=== PATIENT | male | born 1940 | race Hispanic/Latino ===

== ENCOUNTER 2018-07-10 08:07 | Emergency (ER) | payer MEDICARE, OTHER ==
[~2018-07-10] VITALS: Ht 165.1 cm; Wt 72.1 kg
[~2018-07-10 08:07] MED LIST: AMARYL1 MG PO; BENEFIBER1 EAC1; LEVAQUIN500 MG PO; LORTAB 7.5-5001 EACH; METOPROLOL SUCC50 MG PO; SYNTHROID25 MCG PO; Z.0.DEXILANT60 MG PO; Z.0.GLUCOPHAGE500 MG PO; Z.0.LIPITOR20 MG; Z.0.METOPROLOL SUCC5 PO; [UNRECOGNIZED DRUG - OTHER] PO
--- OUTSIDE RECORDS SUMMARY | 2018-07-10 08:11 | XMS REPORT ---
Author Author [facility] Address Unknown Phone Unavailable Care Team Providers Care Lease Attendant Name Role Phone Unavailable Unavailable Payers Payer Name Policy Type Policy Number Effective Date Expiration Date Problems This patient has no known problems. Allergies, Adverse Reactions, Alerts Allergy Name Allergy Type Status Severity Reaction(s) Onset Date Inactive Date Treating Clinician Comments rosie DA Active [place] 2018-04-12 00:00:00 Medications This patient has no known medications.
--- NOTE | 2018-07-10 08:18 | NUR ---
DR AWAD AT BEDSIDE FOR PATIENT EVAL
[2018-07-10] MEDS ORDERED: ACETAMINOPHEN 325 MG TAB PO ONE (08:30)
[2018-07-10] MEDS ORDERED: IBUPROFEN 400 MG TAB PO ONE (09:00)
[2018-07-10 09:02] LABS: STREPTOCOCCUS GRP A ANTIGEN NEGATIVE (NEGATIVE)
[2018-07-10 09:03] LABS: INFLUENZAE A&B ANTIGEN (RAPID) POSITIVE FLU A (NEGATIVE)
--- NOTE | 2018-07-10 09:18 | Diagnostic Imaging Report ---
EXAM: CHEST 2 VIEWS DATE: 07/10/2018 8:25 AM INDICATION: Fever, chills COMPARISON: A chest x-ray was performed on 04/10/2013. However, previous chest images are not available on PACS for comparison FINDINGS: Lines and tubes: None Heart size normal. No focal pulmonary opacity, pleural effusion or pneumothorax. Upper abdomen unremarkable. No acute bony abnormality. IMPRESSION: No evidence for acute disease. Signed by: Dr. Tu Cardoza M.D. on 07/10/2018 9:14 AM
[2018-07-10 09:36] VITALS: BP 138/75
== END 2018-07-10 09:39 | disposition home or self-care (01) ==
LOC: ER 08:07
DX: R50.9 Fever, unspecified (principal); R05 Cough; J11.1 Influenza due to unidentified influenza virus with other respiratory manifestations
CPT/HCPCS: 71046; 83518; 87070; 87400; 99283

== ENCOUNTER → 2019-04-11 | Outpatient (CLI) | payer OTHER, MEDICARE ==
[~2019-04-11] MED LIST changes: +GADOBENATE DIMEGLUMINE 1 ML IV ONE; +SODIUM CHLORIDE 0.9% 100 ML ONE
[2019-04-11 09:42] LABS: BLOOD UREA NITROGEN 20 mg/dL (7-26); BUN/CREATININE RATIO 25 (6-25); CREATININE, SERUM 0.79 mg/dL (0.72-1.25); EST GLOMERULAR FILTRATION RATE > 60 ML/MIN (60-)
--- NOTE | 2019-04-11 17:02 | Diagnostic Imaging Report ---
EXAM: MR Abdomen WITHOUT and WITH Contrast Magnetic Resonance Cholangiopancreatography (M.R.C.P.) INDICATION: CHRONIC PANCREATITIS COMPARISON: 11/23/2015 TECHNIQUE: Multiplanar, multisequence imaging of the abdomen was performed pre- and post-IV administration of gadolinium. Dynamic enhanced images of the abdomen were included. 3-D MRCP fat-saturated sequence was performed post contrast with MIP reformations. FINDINGS: LOWER THORAX: Unremarkable. HEPATOBILIARY: There is diffuse hepatic steatosis. No suspicious focal hepatic lesions. Is a 2.6 x 3.6 cm cyst in the left hepatic lobe No hepatic or extrahepatic biliary ductal dilation. GALLBLADDER: The gallbladder is absent SPLEEN: No splenomegaly. PANCREAS: No pancreatic masses identified. The pancreatic duct demonstrates mild diffuse dilatation of to 6 mm. This is unchanged prior examination. ADRENALS: No adrenal nodules KIDNEYS/URETERS: Kidneys enhance symmetrically. No hydronephrosis. No cystic or solid mass lesions. No stones. GI TRACT: No abnormal distention, wall thickening, or evidence of bowel obstruction. LYMPH NODES: No lymphadenopathy. VESSELS: Unremarkable. PERITONEUM / RETROPERITONEUM: No free air or fluid. BONES: The suspicious osseous lesions. SOFT TISSUES: IMPRESSION: Mild unchanged diffuse ductal dilatation of the main pancreatic duct up to 6 mm. Possibly the sequela of chronic pancreatitis. No pancreatic lesions identified. Signed by: Oscar Mac MD on 04/11/2019 4:59 PM
== END ==
LOC: MRI 09:08
PROVIDERS: ATTEND Internal Medicine Gastroenterology
DX: K86.1 Other chronic pancreatitis (principal)
CPT/HCPCS: 36415; 74183; 82565; 84520; A9577; J7050

== ENCOUNTER 2021-10-24 06:15 | Emergency (ER) | payer MEDICARE, BC ==
[~2021-10-24] VITALS: Ht 165.1 cm; Wt 72.1 kg
[~2021-10-24 06:15] MED LIST changes: -GADOBENATE DIMEGLUMINE 1 ML IV ONE; -SODIUM CHLORIDE 0.9% 100 ML ONE
[2021-10-24] MEDS ORDERED: KETOROLAC TROMETHAMINE 30 MG/ML VIAL IM STA (06:29)
[2021-10-24] MEDS ORDERED: IBUPROFEN400 MG PO (06:31)
== END 2021-10-24 08:03 | disposition home or self-care (01) ==
LOC: ER 06:30
DX: M79.18 Myalgia, other site (principal); M25.511 Pain in right shoulder; Z88.6 Allergy status to analgesic agent
CPT/HCPCS: 99282; J1885

== ENCOUNTER 2021-11-29 14:00 | Inpatient (IN) | payer BC, MEDICARE ==
[~2021-11-29] VITALS: Ht 167.6 cm; Wt 65.3 kg
[~2021-11-29 14:00] MED LIST changes: +IBUPROFEN400 MG PO
[2021-11-29] MEDS ORDERED: SODIUM CHLORIDE 0.9% 1000ML 1,000 ML IV STA (15:46)
[2021-11-29] MEDS ORDERED: ONDANSETRON HCL INJ 2MG/ML 2ML 2 MG/ML VIAL IV STA (15:46)
[2021-11-29] MEDS ORDERED: Morphine 4mg INJECTION 4 MG/ML INJ IV STA (15:46)
[2021-11-29] MEDS ORDERED: IOPAMIDOL 370 MG/ML 100 ML INFUS..BTL INJ ONE (16:08)
[2021-11-29] MEDS ORDERED: DIATRIZOATE MEGL/DIATRIZOA SOD 30 ML BTL PO ONE (16:10)
[2021-11-29 16:40] LABS: BASOPHILS # (AUTO) 0.1 (0.0-0.1); BASOPHILS % 0.6 % (0.0-1.0); EOSINOPHILS # (AUTO) 0.4 (0.0-0.4); EOSINOPHILS % 2.6 % (0.0-6.0); HEMATOCRIT 35.1 % (38.2-49.6); HEMOGLOBIN 11.6 g/dL (14.0-18.0); LYMPHOCYTES # (AUTO) 2.4 (1.0-3.2); LYMPHOCYTES % 17.4 % (18.0-39.1); MEAN CORPUSCULAR HEMOGLOBIN 28.8 pg (28-32); MEAN CORPUSCULAR VOLUME 87.1 fL (81-99); MONOCYTES # (AUTO) 0.9 (0.2-0.8); MONOCYTES % 6.7 % (4.4-11.3); NEUTROPHILS # (AUTO) 10.1 (2.1-6.9); NEUTROPHILS % 72.2 % (38.7-80.0); PLATELET COUNT 386 x10e3/uL (140-360); RED BLOOD COUNT 4.03 x10e6/uL (4.3-5.7); RED CELL DISTRIBUTION WIDTH 14.5 % (11.7-14.4)
[2021-11-29 17:02] LABS: ALANINE AMINOTRANSFERASE 133 IU/L (0-55); ALBUMIN 2.3 g/dL (3.5-5.0); ALBUMIN/GLOBULIN RATIO 0.4 (0.8-2.0); ALKALINE PHOSPHATASE 1117 IU/L (40-150); ANION GAP 15.4 mmol/L (8-16); BLOOD UREA NITROGEN 21 mg/dL (7-26); BUN/CREATININE RATIO 21 (6-25); CALCIUM 9.5 mg/dL (8.4-10.2); CARBON DIOXIDE 25 mmol/L (22-29); CHLORIDE 98 mmol/L (98-107); CREATINE KINASE 29 IU/L (30-200); CREATININE, SERUM 0.98 mg/dL (0.72-1.25); GLUCOSE 134 mg/dL (74-118); LIPASE 50 U/L (8-78); MAGNESIUM 1.9 MG/DL (1.3-2.1); POTASSIUM 4.4 mmol/L (3.5-5.1); SODIUM 134 mmol/L (136-145)
[2021-11-29 18:34] LABS: CLARITY,URINE SL CLOUDY (CLEAR); COLOR,URINE YELLOW (YELLOW); KETONES,URINE NEGATIVE (NEGATIVE); LEUKOCYTE ESTERASE ,URINE NEGATIVE (NEGATIVE); NITRITE,URINE NEGATIVE (NEGATIVE); PROTEIN,URINE DIPSTICK NEGATIVE (NEGATIVE); URINE UROBILINOGEN 1 mg/dL (0.2 - 1)
[2021-11-29] MEDS: Morphine 4mg INJECTION 4 MG/ML INJ IV PRN (20:44)
[2021-11-29] MEDS: ONDANSETRON HCL INJ 2MG/ML 2ML 2 MG/ML VIAL IV PRN (20:44)
[2021-11-29 23:00] LABS: ALBUMIN 2.1 g/dL (3.5-5.0); BILIRUBIN,DIRECT 1.2 mg/dL (0.0-0.5)
[2021-11-30] VITALS (9 sets, daily range): BP systolic 118–168; BP diastolic 75–87
[2021-11-30] MEDS: ONDANSETRON HCL INJ 2MG/ML 2ML 2 MG/ML VIAL IV PRN (01:23)
[2021-11-30] MEDS: Morphine 4mg INJECTION 4 MG/ML INJ IV PRN ×2 (01:23→23:21)
[2021-11-30] MEDS ORDERED: ACETAMINOPHEN 325 MG TAB PO ONE (01:30)
[2021-11-30] MEDS ORDERED: ACETAMINOPHEN 325 MG TAB ONE (01:42)
[2021-11-30] MEDS ORDERED: SODIUM CHLORIDE 0.9% 250ML 250 ML ONE (05:14)
[2021-11-30] MEDS ORDERED: GADOBENATE DIMEGLUMINE 1 ML IV ONE (14:34)
[2021-11-30 15:56] LABS: INR 0.98; PROTHROMBIN TIME 13.9 seconds (11.9-14.5)
[2021-11-30] MEDS ORDERED: DEXTROSE 50% SYRINGE 50 ML IV PRN (21:30)
[2021-11-30] MEDS: INSULIN REGULAR, HUMAN 100 UNIT/1 ML SQ SCH (21:56)
[2021-12-01] VITALS (9 sets, daily range): BP systolic 121–156; BP diastolic 61–89
[2021-12-01 04:52] LABS: BASOPHILS # (AUTO) 0.1 (0.0-0.1); BASOPHILS % 0.4 % (0.0-1.0); EOSINOPHILS # (AUTO) 0.4 (0.0-0.4); EOSINOPHILS % 3.3 % (0.0-6.0); HEMOGLOBIN 10.7 g/dL (14.0-18.0); LYMPHOCYTES # (AUTO) 1.7 (1.0-3.2); LYMPHOCYTES % 14.4 % (18.0-39.1); MEAN CORPUSCULAR HEMOGLOBIN 28.8 pg (28-32); MEAN CORPUSCULAR HGB CONC 34.5 g/dL (31-35); MEAN CORPUSCULAR VOLUME 83.6 fL (81-99); MONOCYTES # (AUTO) 0.9 (0.2-0.8); MONOCYTES % 7.8 % (4.4-11.3); NEUTROPHILS # (AUTO) 8.8 (2.1-6.9); NEUTROPHILS % 73.7 % (38.7-80.0); PLATELET COUNT 353 x10e3/uL (140-360); RED BLOOD COUNT 3.71 x10e6/uL (4.3-5.7); RED CELL DISTRIBUTION WIDTH 14.2 % (11.7-14.4)
[2021-12-01 05:10] LABS: ANION GAP 13.1 mmol/L (8-16); CREATININE, SERUM 0.81 mg/dL (0.72-1.25); POTASSIUM 4.1 mmol/L (3.5-5.1)
[2021-12-01] MEDS ORDERED: LIDOCAINE HCL 1% LOCAL INJ 20 ML VIAL ONE (09:51)
[2021-12-01] MEDS ORDERED: FENTANYL CITRATE/PF 100MCG/2 ML INJ ONE (09:58)
[2021-12-01] MEDS ORDERED: MIDAZOLAM HCL 2 MG/2 ML VIAL ONE (09:58)
[2021-12-01] MEDS ORDERED: SODIUM CHLORIDE 0.9% 250ML 250 ML ONE (09:59)
[2021-12-01] MEDS: INSULIN REGULAR, HUMAN 100 UNIT/1 ML SQ SCH ×3 (12:32→21:18)
[2021-12-01] MEDS: ONDANSETRON HCL INJ 2MG/ML 2ML 2 MG/ML VIAL IV PRN (15:39)
[2021-12-01] MEDS: Morphine 4mg INJECTION 4 MG/ML INJ IV PRN ×2 (15:40→20:11)
[2021-12-02 05:25] LABS: BASOPHILS # (AUTO) 0.1 (0.0-0.1); BASOPHILS % 0.8 % (0.0-1.0); EOSINOPHILS # (AUTO) 0.7 (0.0-0.4); HEMATOCRIT 29.8 % (38.2-49.6); HEMOGLOBIN 9.9 g/dL (14.0-18.0); LYMPHOCYTES % 17.1 % (18.0-39.1); MEAN CORPUSCULAR HEMOGLOBIN 28.3 pg (28-32); MEAN CORPUSCULAR HGB CONC 33.2 g/dL (31-35); MEAN CORPUSCULAR VOLUME 85.1 fL (81-99); MONOCYTES # (AUTO) 0.9 (0.2-0.8); NEUTROPHILS # (AUTO) 7.7 (2.1-6.9); NEUTROPHILS % 67.5 % (38.7-80.0); PLATELET COUNT 358 x10e3/uL (140-360); RED CELL DISTRIBUTION WIDTH 14.7 % (11.7-14.4)
[2021-12-02 05:50] LABS: ALBUMIN 1.8 g/dL (3.5-5.0); ALBUMIN/GLOBULIN RATIO 0.4 (0.8-2.0); CALCIUM 8.3 mg/dL (8.4-10.2); CREATININE, SERUM 0.84 mg/dL (0.72-1.25)
[2021-12-02] MEDS ORDERED: ACETAMINOPHEN 325 MG TAB PO PRN (06:30)
[2021-12-02 07:46] VITALS: BP 151/74
[2021-12-02] MEDS ORDERED: GADOBENATE DIMEGLUMINE 1 ML IV ONE (08:42)
[2021-12-02] MEDS: INSULIN REGULAR, HUMAN 100 UNIT/1 ML SQ SCH ×4 (09:23→22:30)
[2021-12-02 09:28] VITALS: BP 151/74
[2021-12-02 10:59] VITALS: BP 138/77
[2021-12-02 15:39] VITALS: BP 143/75
[2021-12-02 20:00] VITALS: BP 161/81
[2021-12-02 20:41] VITALS: BP 161/81
[2021-12-02] MEDS: ONDANSETRON HCL INJ 2MG/ML 2ML 2 MG/ML VIAL IV PRN (23:50)
[2021-12-03] VITALS: BP 146/72
[2021-12-03 00:09] LABS: % IRON SATURATION 11 % (15-50); IRON 21 ug/dL (65-175); TOTAL IRON BINDING CAPACITY 183 ug/dL (261-478); TRANSFERRIN 131 mg/dL (174-364)
[2021-12-03 04:00] VITALS: BP 155/78
[2021-12-03 07:44] VITALS: BP 144/74
[2021-12-03] MEDS: INSULIN REGULAR, HUMAN 100 UNIT/1 ML SQ SCH ×2 (08:33→11:30)
[2021-12-03 09:00] VITALS: BP 144/74
[2021-12-03] MEDS: IRON SUCROSE 100 MG in SODIUM CHLORIDE 0.9% 100 ML IV SCH ×2 (09:00→14:01)
[2021-12-03] MEDS ORDERED: AMBIEN5 MG PO (11:36)
[2021-12-03] MEDS ORDERED: DEXILANT60 MG PO (11:36)
[2021-12-03] MEDS: Morphine 4mg INJECTION 4 MG/ML INJ IV PRN (12:02)
[2021-12-03] MEDS: ONDANSETRON HCL INJ 2MG/ML 2ML 2 MG/ML VIAL IV PRN (12:02)
[2021-12-03 12:39] VITALS: BP 159/81
[2021-12-03] MEDS ORDERED: HYDROCODON-ACE1 EAC9 PO (12:44)
[2021-12-03 18:48] VITALS: BP 132/59
[2021-12-03] MEDS ORDERED: INSULIN GLARGINE 100 UNITS/ML VIAL SQ SCH (21:00)
[2021-12-03] MEDS ORDERED: PANTOPRAZOLE SOD 40 MG TABEC PO SCH (21:00)
[2021-12-04] MEDS ORDERED: SENNOSIDES 8.6 MG TAB PO SCH (09:00)
[2021-12-04] MEDS ORDERED: DOCUSATE SODIUM 100 MG CAP PO SCH (09:00)
== END 2021-12-03 14:21 | disposition home or self-care (01) | DRG 844 ==
LOC: ER 16:08 → ERHOLD 19:16 → MED/SURG 11-30 02:09 → OBSVTOIN 11-30 11:20 → MED/SURG3 12-03 10:15
PROC: 0WBH3ZX Excision of Retroperitoneum, Percutaneous Approach, Diagnostic (ICD-10-PCS; principal; 2021-12-01)
DX: C48.0 Malignant neoplasm of retroperitoneum (principal); C79.51 Secondary malignant neoplasm of bone; K86.1 Other chronic pancreatitis; N13.30 Unspecified hydronephrosis; M79.89 Other specified soft tissue disorders; I10 Essential (primary) hypertension; E11.9 Type 2 diabetes mellitus without complications; K21.9 Gastro-esophageal reflux disease without esophagitis; E78.5 Hyperlipidemia, unspecified; Z09 Encounter for follow-up examination after completed treatment for conditions other than malignant neoplasm; Z91.041 Radiographic dye allergy status; E03.9 Hypothyroidism, unspecified; N40.0 Benign prostatic hyperplasia without lower urinary tract symptoms; E11.65 Type 2 diabetes mellitus with hyperglycemia; Z79.4 Long term (current) use of insulin; E78.2 Mixed hyperlipidemia; D64.9 Anemia, unspecified; Z90.49 Acquired absence of other specified parts of digestive tract; K76.0 Fatty (change of) liver, not elsewhere classified
CPT/HCPCS: 0223U; 36415; 70450; 74176; 74183; 74470; 77012; 80048; 80053; 80076; 81001; 82105; 82550; 82553; 82607; 82746; 82948; 83540; 83690; 83735; 84080; 84466; 84484; 85025; 85045; 85610; 85730; 87086; 88304; 88305; 88342; 93005; 99152; 99153; 99251; 99284; G0378; J1756; J1817; J2001; J2185; J2250; J2270; J2405; J3010; J7030; J7050; Q9963; Q9967

== ENCOUNTER 2021-12-28 10:45 | Inpatient (IN) | payer BC, MEDICARE ==
[~2021-12-28] VITALS: Ht 167.6 cm; Wt 65.3 kg
[~2021-12-28 10:45] MED LIST changes: +AMBIEN5 MG PO; +DEXILANT60 MG PO; +HYDROCODON-ACE1 EAC9 PO
[2021-12-28 14:00] VITALS: BP 146/78
[2021-12-28 14:02] VITALS: BP 146/78
[2021-12-28] MEDS ORDERED: SYNJARDY 12.5-1 EACH (14:13)
[2021-12-28 15:53] LABS: BASOPHILS # (AUTO) 0.1 (0.0-0.1); BASOPHILS % 0.4 % (0.0-1.0); EOSINOPHILS # (AUTO) 0.2 (0.0-0.4); EOSINOPHILS % 1.1 % (0.0-6.0); HEMATOCRIT 28.1 % (38.2-49.6); HEMOGLOBIN 9.3 g/dL (14.0-18.0); MEAN CORPUSCULAR HEMOGLOBIN 28.4 pg (28-32); MEAN CORPUSCULAR HGB CONC 33.1 g/dL (31-35); MEAN CORPUSCULAR VOLUME 85.9 fL (81-99); MONOCYTES # (AUTO) 0.6 (0.2-0.8); MONOCYTES % 4.6 % (4.4-11.3); NEUTROPHILS % 85.8 % (38.7-80.0); PLATELET COUNT 276 x10e3/uL (140-360); RED BLOOD COUNT 3.27 x10e6/uL (4.3-5.7); RED CELL DISTRIBUTION WIDTH 21.2 % (11.7-14.4)
[2021-12-28 15:58] VITALS: BP 142/81
[2021-12-28 16:15] LABS: ALBUMIN 1.4 g/dL (3.5-5.0); ALBUMIN/GLOBULIN RATIO 0.3 (0.8-2.0); ANION GAP 17.4 mmol/L (8-16); CREATININE, SERUM 0.73 mg/dL (0.72-1.25); POTASSIUM 4.4 mmol/L (3.5-5.1)
[2021-12-28 20:00] VITALS: BP 150/85
[2021-12-28] MEDS: METFORMIN HCL 500 MG TAB PO SCH (21:00)
[2021-12-28] MEDS ORDERED: ONDANSETRON HCL INJ 2MG/ML 2ML 2 MG/ML VIAL IV PRN (21:15)
[2021-12-28 22:00] VITALS: BP 150/85
[2021-12-28] MEDS: INSULIN LISPRO 100 UNIT/1 ML 3ML VIAL SQ SCH (22:00)
[2021-12-29] VITALS: BP 138/74
[2021-12-29] MEDS: LEVOTHYROXINE SODIUM 125 MCG TAB PO SCH (05:41)
[2021-12-29 05:54] LABS: BASOPHILS # (AUTO) 0.1 (0.0-0.1); BASOPHILS % 0.3 % (0.0-1.0); EOSINOPHILS # (AUTO) 0.3 (0.0-0.4); EOSINOPHILS % 1.9 % (0.0-6.0); HEMOGLOBIN 9.5 g/dL (14.0-18.0); LYMPHOCYTES # (AUTO) 1.7 (1.0-3.2); LYMPHOCYTES % 11.5 % (18.0-39.1); MEAN CORPUSCULAR HEMOGLOBIN 28.8 pg (28-32); MEAN CORPUSCULAR HGB CONC 32.8 g/dL (31-35); MEAN CORPUSCULAR VOLUME 87.9 fL (81-99); MONOCYTES # (AUTO) 0.7 (0.2-0.8); MONOCYTES % 4.7 % (4.4-11.3); NEUTROPHILS # (AUTO) 11.7 (2.1-6.9); NEUTROPHILS % 80.7 % (38.7-80.0); PLATELET COUNT 291 x10e3/uL (140-360); RED CELL DISTRIBUTION WIDTH 21.5 % (11.7-14.4)
[2021-12-29 06:08] LABS: INR 1.09; PROTHROMBIN TIME 15.1 seconds (11.9-14.5)
[2021-12-29 06:09] LABS: PARTIAL THROMBOPLASTIN TIME 42.9 seconds (23.8-35.5)
[2021-12-29 06:33] LABS: ALBUMIN 1.4 g/dL (3.5-5.0); ALBUMIN/GLOBULIN RATIO 0.3 (0.8-2.0); ANION GAP 15.1 mmol/L (8-16); CALCIUM 8.9 mg/dL (8.4-10.2); CREATININE, SERUM 0.66 mg/dL (0.72-1.25); MAGNESIUM 2.1 MG/DL (1.3-2.1); POTASSIUM 4.1 mmol/L (3.5-5.1)
[2021-12-29] MEDS: GLIMEPIRIDE 2 MG TAB PO SCH (07:30)
[2021-12-29] MEDS: INSULIN LISPRO 100 UNIT/1 ML 3ML VIAL SQ SCH ×4 (07:30→23:55)
[2021-12-29] MEDS: PANTOPRAZOLE SOD 40 MG TABEC PO SCH (07:30)
[2021-12-29 08:04] VITALS: BP 138/74
[2021-12-29] MEDS: METFORMIN HCL 500 MG TAB PO SCH ×2 (09:00→20:22)
[2021-12-29] MEDS: METOPROLOL SUCCINATE 50 MG TAB XL PO SCH (09:01)
[2021-12-29 09:02] VITALS: BP 126/67
[2021-12-29 12:31] VITALS: BP 125/66
[2021-12-29] MEDS: HYDROCODONE/APAP 10MG-325MG TAB PO PRN (16:00)
[2021-12-29 16:13] VITALS: BP 135/66
[2021-12-29 20:00] VITALS: BP 135/68
[2021-12-29] MEDS: ACETAMINOPHEN 325 MG TAB PO PRN (22:26)
[2021-12-30] VITALS (8 sets, daily range): BP systolic 122–143; BP diastolic 67–80
[2021-12-30] MEDS: LEVOTHYROXINE SODIUM 125 MCG TAB PO SCH (06:11)
[2021-12-30 06:57] LABS: ALBUMIN 1.3 g/dL (3.5-5.0); ALBUMIN/GLOBULIN RATIO 0.2 (0.8-2.0); ANION GAP 15.2 mmol/L (8-16); BILIRUBIN,DIRECT 5.2 mg/dL (0.0-0.5); CALCIUM 8.6 mg/dL (8.4-10.2); CREATININE, SERUM 0.67 mg/dL (0.72-1.25); POTASSIUM 4.2 mmol/L (3.5-5.1)
[2021-12-30] MEDS: INSULIN LISPRO 100 UNIT/1 ML 3ML VIAL SQ SCH ×5 (08:17→20:44)
[2021-12-30] MEDS: HYDROCODONE/APAP 10MG-325MG TAB PO PRN ×3 (09:11→22:51)
[2021-12-30] MEDS: METFORMIN HCL 500 MG TAB PO SCH ×2 (09:11→20:37)
[2021-12-30] MEDS: GLIMEPIRIDE 2 MG TAB PO SCH (09:12)
[2021-12-30] MEDS: METOPROLOL SUCCINATE 50 MG TAB XL PO SCH (09:13)
[2021-12-30] MEDS: PANTOPRAZOLE SOD 40 MG TABEC PO SCH (09:13)
[2021-12-30] MEDS ORDERED: ONDANSETRON HCL 4 MG ORAL DISINTEGRATING TAB PO PRN (11:45)
[2021-12-30] MEDS ORDERED: [UNRECOGNIZED DRUG - OTHER] PO SCH (14:30)
[2021-12-30] MEDS ORDERED: AMYLASE PO SCH (14:30)
[2021-12-30] MEDS ORDERED: PROTEASE PO SCH (14:30)
[2021-12-30] MEDS ORDERED: LIPASE PO SCH (14:30)
[2021-12-30] MEDS ORDERED: GADOBENATE DIMEGLUMINE 1 ML IV ONE (14:36)
[2021-12-30] MEDS: AMYLAS/CELLU/LIPAS/PROTEA/BILE 12,000 UNIT CAP PO SCH (17:36)
[2021-12-30] MEDS ORDERED: SODIUM CHLORIDE 0.9% 250ML 250 ML ONE (17:52)
[2021-12-30] MEDS: SODIUM FERRIC GLUCONATE COMPLX 125 MG in SODIUM CHLORIDE 0.9% 100 ML IV SCH (20:37)
[2021-12-30] MEDS: ZOLPIDEM TARTRATE 5 MG TAB PO PRN (22:51)
[2021-12-31] VITALS (7 sets, daily range): BP systolic 116–138; BP diastolic 61–77
[2021-12-31] MEDS: LEVOTHYROXINE SODIUM 125 MCG TAB PO SCH (05:36)
[2021-12-31 07:20] LABS: BASOPHILS # (AUTO) 0.1 (0.0-0.1); BASOPHILS % 0.5 % (0.0-1.0); EOSINOPHILS # (AUTO) 0.5 (0.0-0.4); HEMATOCRIT 30.6 % (38.2-49.6); HEMOGLOBIN 9.8 g/dL (14.0-18.0); LYMPHOCYTES # (AUTO) 2.2 (1.0-3.2); LYMPHOCYTES % 14.4 % (18.0-39.1); MEAN CORPUSCULAR HEMOGLOBIN 28.7 pg (28-32); MEAN CORPUSCULAR VOLUME 89.5 fL (81-99); MONOCYTES # (AUTO) 0.7 (0.2-0.8); MONOCYTES % 4.9 % (4.4-11.3); NEUTROPHILS # (AUTO) 11.6 (2.1-6.9); PLATELET COUNT 272 x10e3/uL (140-360); RED BLOOD COUNT 3.42 x10e6/uL (4.3-5.7); RED CELL DISTRIBUTION WIDTH 21.3 % (11.7-14.4)
[2021-12-31] MEDS: INSULIN LISPRO 100 UNIT/1 ML 3ML VIAL SQ SCH ×4 (07:30→21:30)
[2021-12-31 07:52] LABS: ANION GAP 15.4 mmol/L (8-16); CALCIUM 8.9 mg/dL (8.4-10.2); CREATININE, SERUM 0.67 mg/dL (0.72-1.25); POTASSIUM 4.4 mmol/L (3.5-5.1)
[2021-12-31] MEDS: HYDROCODONE/APAP 10MG-325MG TAB PO PRN ×3 (08:31→21:24)
[2021-12-31] MEDS: PANTOPRAZOLE SOD 40 MG TABEC PO SCH (10:24)
[2021-12-31] MEDS: GLIMEPIRIDE 2 MG TAB PO SCH (10:24)
[2021-12-31] MEDS: METFORMIN HCL 500 MG TAB PO SCH ×2 (10:25→21:24)
[2021-12-31] MEDS: SODIUM FERRIC GLUCONATE COMPLX 125 MG in SODIUM CHLORIDE 0.9% 100 ML IV SCH (10:25)
[2021-12-31] MEDS: AMYLAS/CELLU/LIPAS/PROTEA/BILE 12,000 UNIT CAP PO SCH ×3 (10:25→17:04)
[2021-12-31] MEDS: METOPROLOL SUCCINATE 50 MG TAB XL PO SCH (10:26)
[2021-12-31] MEDS: ZOLPIDEM TARTRATE 5 MG TAB PO PRN (21:24)
[2022-01-01] VITALS (9 sets, daily range): BP systolic 122–152; BP diastolic 61–72
[2022-01-01] MEDS: HYDROCODONE/APAP 10MG-325MG TAB PO PRN (06:20)
[2022-01-01] MEDS: LEVOTHYROXINE SODIUM 125 MCG TAB PO SCH (06:20)
[2022-01-01] MEDS: PANTOPRAZOLE SOD 40 MG TABEC PO SCH (07:30)
[2022-01-01] MEDS: INSULIN LISPRO 100 UNIT/1 ML 3ML VIAL SQ SCH ×4 (07:30→20:31)
[2022-01-01] MEDS: AMYLAS/CELLU/LIPAS/PROTEA/BILE 12,000 UNIT CAP PO SCH ×3 (07:30→17:02)
[2022-01-01] MEDS: GLIMEPIRIDE 2 MG TAB PO SCH (07:30)
[2022-01-01] MEDS: METOPROLOL SUCCINATE 50 MG TAB XL PO SCH (08:55)
[2022-01-01] MEDS: METFORMIN HCL 500 MG TAB PO SCH (08:55)
[2022-01-01] MEDS: SODIUM FERRIC GLUCONATE COMPLX 125 MG in SODIUM CHLORIDE 0.9% 100 ML IV SCH (08:56)
[2022-01-01 13:59] LABS: BASOPHILS # (AUTO) 0.1 (0.0-0.1); BASOPHILS % 0.5 % (0.0-1.0); EOSINOPHILS # (AUTO) 0.3 (0.0-0.4); EOSINOPHILS % 1.6 % (0.0-6.0); HEMATOCRIT 29.5 % (38.2-49.6); HEMOGLOBIN 9.4 g/dL (14.0-18.0); LYMPHOCYTES # (AUTO) 2.2 (1.0-3.2); LYMPHOCYTES % 12.9 % (18.0-39.1); MEAN CORPUSCULAR HEMOGLOBIN 28.7 pg (28-32); MEAN CORPUSCULAR HGB CONC 31.9 g/dL (31-35); MEAN CORPUSCULAR VOLUME 89.9 fL (81-99); MONOCYTES # (AUTO) 0.8 (0.2-0.8); MONOCYTES % 4.8 % (4.4-11.3); NEUTROPHILS # (AUTO) 13.4 (2.1-6.9); PLATELET COUNT 284 x10e3/uL (140-360); RED BLOOD COUNT 3.28 x10e6/uL (4.3-5.7); RED CELL DISTRIBUTION WIDTH 21.5 % (11.7-14.4)
[2022-01-01 14:24] LABS: ALBUMIN 1.2 g/dL (3.5-5.0); ALBUMIN/GLOBULIN RATIO 0.2 (0.8-2.0); ANION GAP 17.5 mmol/L (8-16); CALCIUM 9.1 mg/dL (8.4-10.2); CREATININE, SERUM 0.79 mg/dL (0.72-1.25); POTASSIUM 4.5 mmol/L (3.5-5.1)
[2022-01-01] MEDS: DEXTROSE 50% SYRINGE 50 ML IV PRN (20:29)
[2022-01-01] MEDS: DEXTROSE 5%/0.45% SOD CHL 1,000 ML IV SCH (21:14)
[2022-01-01] MEDS: ZOLPIDEM TARTRATE 5 MG TAB PO PRN (22:54)
[2022-01-02] VITALS (7 sets, daily range): BP systolic 113–139; BP diastolic 60–75
[2022-01-02] MEDS: DEXTROSE 50% SYRINGE 50 ML IV PRN (03:31)
[2022-01-02] MEDS: HYDROCODONE/APAP 10MG-325MG TAB PO PRN ×2 (05:01→23:05)
[2022-01-02] MEDS: LEVOTHYROXINE SODIUM 125 MCG TAB PO SCH (05:01)
[2022-01-02 06:26] LABS: BASOPHILS # (AUTO) 0.1 (0.0-0.1); BASOPHILS % 0.4 % (0.0-1.0); EOSINOPHILS # (AUTO) 0.3 (0.0-0.4); EOSINOPHILS % 2.4 % (0.0-6.0); HEMATOCRIT 28.4 % (38.2-49.6); HEMOGLOBIN 9.1 g/dL (14.0-18.0); LYMPHOCYTES # (AUTO) 1.4 (1.0-3.2); LYMPHOCYTES % 10.4 % (18.0-39.1); MEAN CORPUSCULAR HEMOGLOBIN 29.1 pg (28-32); MEAN CORPUSCULAR VOLUME 90.7 fL (81-99); MONOCYTES # (AUTO) 0.7 (0.2-0.8); MONOCYTES % 5.2 % (4.4-11.3); NEUTROPHILS # (AUTO) 10.9 (2.1-6.9); NEUTROPHILS % 80.4 % (38.7-80.0); PLATELET COUNT 262 x10e3/uL (140-360); RED BLOOD COUNT 3.13 x10e6/uL (4.3-5.7); RED CELL DISTRIBUTION WIDTH 22.1 % (11.7-14.4)
[2022-01-02 06:51] LABS: ALBUMIN 1.1 g/dL (3.5-5.0); ALBUMIN/GLOBULIN RATIO 0.2 (0.8-2.0); ANION GAP 16.2 mmol/L (8-16); CALCIUM 8.8 mg/dL (8.4-10.2); CREATININE, SERUM 0.76 mg/dL (0.72-1.25); POTASSIUM 4.2 mmol/L (3.5-5.1)
[2022-01-02] MEDS: INSULIN LISPRO 100 UNIT/1 ML 3ML VIAL SQ SCH ×4 (07:30→22:00)
[2022-01-02] MEDS: PANTOPRAZOLE SOD 40 MG TABEC PO SCH (09:31)
[2022-01-02] MEDS: AMYLAS/CELLU/LIPAS/PROTEA/BILE 12,000 UNIT CAP PO SCH ×3 (09:31→15:48)
[2022-01-02] MEDS: SODIUM FERRIC GLUCONATE COMPLX 125 MG in SODIUM CHLORIDE 0.9% 100 ML IV SCH (09:31)
[2022-01-02] MEDS: METOPROLOL SUCCINATE 50 MG TAB XL PO SCH (09:32)
[2022-01-02] MEDS: ACETAMINOPHEN 325 MG TAB PO PRN (11:31)
[2022-01-02] MEDS ORDERED: DOCUSATE SODIUM 100 MG CAP PO PRN (13:30)
[2022-01-02] MEDS: DEXTROSE 5%/0.45% SOD CHL 1,000 ML IV SCH (17:09)
[2022-01-02] MEDS: ZOLPIDEM TARTRATE 5 MG TAB PO PRN (22:35)
[2022-01-03] VITALS (8 sets, daily range): BP systolic 127–140; BP diastolic 66–74
[2022-01-03] MEDS: HYDROCODONE/APAP 10MG-325MG TAB PO PRN ×2 (04:00→17:02)
[2022-01-03] MEDS: LEVOTHYROXINE SODIUM 125 MCG TAB PO SCH (06:00)
[2022-01-03] MEDS: SODIUM FERRIC GLUCONATE COMPLX 125 MG in SODIUM CHLORIDE 0.9% 100 ML IV SCH (09:38)
[2022-01-03] MEDS: AMYLAS/CELLU/LIPAS/PROTEA/BILE 12,000 UNIT CAP PO SCH ×3 (09:38→17:00)
[2022-01-03] MEDS: PANTOPRAZOLE SOD 40 MG TABEC PO SCH (09:39)
[2022-01-03] MEDS: METOPROLOL SUCCINATE 50 MG TAB XL PO SCH (09:39)
[2022-01-03] MEDS: INSULIN LISPRO 100 UNIT/1 ML 3ML VIAL SQ SCH ×4 (09:51→20:45)
[2022-01-03] MEDS: DEXTROSE 5%/0.45% SOD CHL 1,000 ML IV SCH (13:15)
[2022-01-03 13:52] LABS: INR 1.14; PROTHROMBIN TIME 15.6 seconds (11.9-14.5)
[2022-01-03 13:53] LABS: PARTIAL THROMBOPLASTIN TIME 53.1 seconds (23.8-35.5)
[2022-01-03] MEDS: ACETAMINOPHEN 325 MG TAB PO PRN (21:30)
[2022-01-04] VITALS (8 sets, daily range): BP systolic 110–135; BP diastolic 65–80
[2022-01-04] MEDS: ZOLPIDEM TARTRATE 5 MG TAB PO PRN (01:34)
[2022-01-04] MEDS: HYDROCODONE/APAP 10MG-325MG TAB PO PRN (01:35)
[2022-01-04] MEDS: LEVOTHYROXINE SODIUM 125 MCG TAB PO SCH (04:39)
[2022-01-04] MEDS: INSULIN LISPRO 100 UNIT/1 ML 3ML VIAL SQ SCH ×4 (07:30→21:00)
[2022-01-04] MEDS: AMYLAS/CELLU/LIPAS/PROTEA/BILE 12,000 UNIT CAP PO SCH ×3 (08:00→17:02)
[2022-01-04] MEDS: SODIUM FERRIC GLUCONATE COMPLX 125 MG in SODIUM CHLORIDE 0.9% 100 ML IV SCH (09:12)
[2022-01-04] MEDS: DEXTROSE 5%/0.45% SOD CHL 1,000 ML IV SCH (09:15)
[2022-01-04] MEDS: PANTOPRAZOLE SOD 40 MG TABEC PO SCH (09:18)
[2022-01-04] MEDS: METOPROLOL SUCCINATE 50 MG TAB XL PO SCH (09:18)
[2022-01-04] MEDS ORDERED: IOPAMIDOL 300MG/ML 50ML INFUS..BTL IV ONE (12:18)
[2022-01-04] MEDS ORDERED: POVIDONE IODINE 0.05% 0.05 % ML PO ONE (13:04)
[2022-01-04] MEDS ORDERED: LIDOCAINE HCL 2% LOCAL INJ 5 ML SDV VIAL INJ ONE (13:04)
[2022-01-04] MEDS ORDERED: PROPOFOL IV EMULSION 10 MG/ML 20 ML VIAL ONE (13:04)
[2022-01-04] MEDS ORDERED: SEVOFLURANE INHAL SOLN 250 ML PEN BTL ONE (13:04)
[2022-01-04] MEDS: ACETAMINOPHEN 325 MG TAB PO PRN (20:16)
[2022-01-04] MEDS ORDERED: HYDROCODONE/APAP 10MG-325MG TAB PO PRN (21:45)
[2022-01-04] MEDS ORDERED: ZOLPIDEM TARTRATE 5 MG TAB PO PRN (21:45)
[2022-01-05] VITALS: BP 109/57
[2022-01-05] MEDS: DEXTROSE 5%/0.45% SOD CHL 1,000 ML IV SCH
[2022-01-05] MEDS: LEVOTHYROXINE SODIUM 125 MCG TAB PO SCH (05:50)
[2022-01-05] MEDS: INSULIN LISPRO 100 UNIT/1 ML 3ML VIAL SQ SCH ×2 (07:30→11:30)
[2022-01-05 08:26] VITALS: BP 127/61
[2022-01-05] MEDS: AMYLAS/CELLU/LIPAS/PROTEA/BILE 12,000 UNIT CAP PO SCH ×2 (08:49→11:54)
[2022-01-05] MEDS: PANTOPRAZOLE SOD 40 MG TABEC PO SCH (08:50)
[2022-01-05] MEDS: METOPROLOL SUCCINATE 50 MG TAB XL PO SCH (08:50)
[2022-01-05] MEDS: SODIUM FERRIC GLUCONATE COMPLX 125 MG in SODIUM CHLORIDE 0.9% 100 ML IV SCH (10:18)
[2022-01-05 12:17] VITALS: BP 124/67
== END 2022-01-05 13:33 | disposition hospice, home (50) | DRG 656 ==
LOC: MED/SURG2 13:23
PROC: BT1F1ZZ Fluoroscopy of Left Kidney, Ureter and Bladder using Low Osmolar Contrast (ICD-10-PCS; principal; 2021-12-28)
PROC: 0T778ZZ Dilation of Left Ureter, Via Natural or Artificial Opening Endoscopic (ICD-10-PCS; 2021-12-28)
PROC: 8E0ZXY6 Isolation (ICD-10-PCS; 2021-12-28)
DX: C64.2 Malignant neoplasm of left kidney, except renal pelvis (principal); G93.41 Metabolic encephalopathy; U07.1 COVID-19; J12.82 Pneumonia due to coronavirus disease 2019; N13.30 Unspecified hydronephrosis; C79.51 Secondary malignant neoplasm of bone; R64 Cachexia; E11.69 Type 2 diabetes mellitus with other specified complication; E78.5 Hyperlipidemia, unspecified; I10 Essential (primary) hypertension; N40.0 Benign prostatic hyperplasia without lower urinary tract symptoms; Z66 Do not resuscitate; Z68.23 Body mass index [BMI] 23.0-23.9, adult; Z51.5 Encounter for palliative care
CPT/HCPCS: 36415; 70553; 71045; 71046; 71250; 74420; 80048; 80053; 82140; 82248; 82948; 83540; 83735; 84155; 84466; 85025; 85610; 85730; 87086; 96361; 96366; 99251; C1758; J0696; J2001; J2916; J7050; J7799